=== PATIENT | male | born 1970 | race Two or more races ===

== ENCOUNTER → 2024-06-26 | Outpatient (CLI) | payer MEDICAID, SELFPAY ==
--- NOTE | 2024-06-26 09:58 | XR_ITS ---
Examination: Shoulder,left 3-D no thousand, 3 views Technique: Shoulder AP internal rotation, AP external rotation, Y view shoulder, 3 views Exam date and time :6 hours INDICATIONS: Left shoulder pain beginning one month ago. FINDINGS: Moderate osteoarthritis glenohumeral joint No fracture or shoulder dislocation Moderate osteoarthritis acromioclavicular joint IMPRESSION: Moderate osteoarthritis
== END | disposition home or self-care (01) ==
PROVIDERS: PCP Nurse Practitioner Family; Referring Provider Nurse Practitioner Family; Visit Provider Nurse Practitioner Family
DX: M25.512 Pain in left shoulder (principal); M19.90 Unspecified osteoarthritis, unspecified site
CPT/HCPCS: 73030